=== PATIENT | male | born 1995 | race African-American/Black ===

== ENCOUNTER 2018-05-04 20:15 | Emergency (ER) | payer MEDICAID ==
[~2018-05-04] VITALS: Ht 180.3 cm; Wt 85.0 kg
[~2018-05-04 20:15] MED LIST: PROMETHAZINE
[2018-05-04] MEDS ORDERED: LIDOCAINE HCL 1% 20ML VIAL (Pyxis) INJ MC ONE (21:00)
[2018-05-04] MEDS ORDERED: TETANUS, DIPHTHERIA, PERTUSSIS VAC/PF 0.5ML (>7YR OLD) IM ONE (21:00)
[2018-05-04] MEDS ORDERED: HYDROCODONE/ACETAMINOPHEN 5/325MG TABLET PO ONE (21:00)
[2018-05-04] MEDS ORDERED: BACITRACIN ZINC OINT UDPKT TOP ONE (21:00)
[2018-05-04] MEDS ORDERED: LIDOCAINE HCL/PF 1% 10 MG/ML 5ML VIAL IJ SCH (21:20)
[2018-05-05] VITALS: BP 121/77
== END 2018-05-05 | disposition home or self-care (01) ==
LOC: ER 21:01
DX: S09.8XXA Other specified injuries of head, initial encounter (principal); S10.93XA Contusion of unspecified part of neck, initial encounter; S30.0XXA Contusion of lower back and pelvis, initial encounter; S40.012A Contusion of left shoulder, initial encounter; S40.011A Contusion of right shoulder, initial encounter; G82.20 Paraplegia, unspecified; V49.9XXA Car occupant (driver) (passenger) injured in unspecified traffic accident, initial encounter; Y93.89 Activity, other specified; Y92.410 Unspecified street and highway as the place of occurrence of the external cause
CPT/HCPCS: 12014; 70450; 72125; 73030; 90471; 90715; 99284; J3490; Z7610